=== PATIENT | male | born 1985 | race Hispanic/Latino ===

== ENCOUNTER 2022-04-21 15:45 | Emergency (ER) | payer MEDICARE ==
[2022-04-21] MEDS ORDERED: SUCCINYLCHOLINE CHLORIDE 200 MG/10 ML INJ MDV ONE (16:09)
[2022-04-21] MEDS ORDERED: ETOMIDATE 20 MG/10 ML INJ IV ONE (16:09)
[2022-04-21] MEDS ORDERED: LORazepam 2 MG/ML VIAL ONE (16:12)
--- NOTE | 2022-04-21 16:15 | Procedure Note ---
Pre-op diagnosis: Acute hypoxemic respiratory failure Post-op diagnosis: same Procedure: Fiberoptic intubation Time out: Yes Sedative: No Laryngoscope: Fiberoptic video Size: 4 ETT size: 8 Tubes daily: 24 cm Tube placement confirmation: Visualized tube passing through the vocal cords: Equal breath sounds: Capnometry confirmation Complications: None Anesthesia: none Surgeon: TRACIE ALAS Estimated blood loss: none Condition: critical Disposition: ICU
--- NOTE | 2022-04-21 16:15 | History and Physical Report ---
History of Present Illness Chief complaint: Cardiac arrest History of present illness: 29-year-old male found down and was unresponsive and transported to [facility] via EMS. Patient found to be in cardiac arrest. Patient arrived in the emergency department undergoing ACLS protocol. Patient seen and evaluated in the emerg ency department. Patient found to have acute hypoxemic respiratory failure secondary to cardiac arrest. Patient treated" with ACLS protocol without return of perfusing cardiac rhythm. Past History Past Medical History: No medical history, other (Unable to obtain) Past Surgical History: No surgical history, Other (Unable to obtain) Social history: no significant social history, single Family history: no significant family history, other (Unable to obtain) Review of Systems ROS unobtainable: due to endotracheal tube, due to mental status Exam - Constitutional General appearance: Present: severe distress - EENT Eyes: Present: mydriasis ENT: hearing decreased - Respiratory Respiratory: bilateral: diminished - Cardiovascular Heart Sounds: Present: S1 & S2. Absent: rub, click - Extremities Extremities: no ischemia Peripheral Pulses: abnormal - Abdominal General gastrointestinal: Present: soft, non-tender, non-distended, normal bowel sounds Male genitourinary: Present: normal - Integumentary Integumentary: Present: dry, clammy, decreased turgor - Musculoskeletal Musculoskeletal: generalized weakness - Psychiatric Psychiatric: no appropriate mood/affect, no memory intact - Neurologic Neurologic: no CNII-XII intact, no moves all extremities, no gait normal Assessment and Plan - Patient Problems (1) Acute hypoxemic respiratory failure Status: Acute Plan to address problem: Patient been placed on ventilatory support. (2) Cardiac arrest Status: Acute Plan to address problem: Patient treated in clinic ACLS protocol without return of perfusing cardiac rhythm. Patient with heart disease in the emergency department.
--- NOTE | 2022-04-21 16:27 | Death Summary ---
Summary - summary Disposition: 37-year-old male found down and was unresponsive and transported to [facility] via EMS. Patient found to be in cardiac arrest. Patient arrived in the emergency department undergoing ACLS protocol. Patient seen and evaluated in the emergency department. Patient found to have acute hypoxemic respiratory failure secondary to cardiac arrest. Patient treated" with ACLS protocol without return of perfusing cardiac rhythm. Patient pronounced at 1600 hrs. - Final diagnosis (1) Acute hypoxemic respiratory failure Note: Final diagnosis: (2) Cardiac arrest Note: Final diagnosis:
[2022-04-21] MEDS ORDERED: CALCIUM CHLORIDE 1,000 MG/10 ML SYRINGE IV ONE (18:00)
[2022-04-21] MEDS ORDERED: AMIODARONE 150 MG/3 ML INJ IV ONE (18:00)
[2022-04-21] MEDS ORDERED: SODIUM BICARB 8.4% 50 MEQ/50 ML SYRINGE IV ONE (18:00)
[2022-04-21] MEDS ORDERED: EPINEPHrine 1 MG/10 ML SYRINGE ONE (18:00)
[2022-04-21] MEDS ORDERED: LIDOCAINE PF 100 MG/5 ML (CARDIAC SYRINGE) IV ONE (18:00)
== END 2022-04-21 22:17 ==
LOC: ED 15:45
DX: J96.01 Acute respiratory failure with hypoxia (principal)
CPT/HCPCS: 99285; J0171; J0282; J0330; J2001; J2060; J3490